=== PATIENT | male | born 1940 | race Caucasian/White ===

== ENCOUNTER 2024-01-10 14:46 | Outpatient (CLI) | payer OTHER ==
[~2024-01-10] VITALS: Ht 177.8 cm; Wt 77.1 kg
[2024-01-10] MEDS ORDERED: POTA10CA95 PO (16:15)
[2024-01-10] MEDS ORDERED: LYR25C PO (16:15)
[2024-01-10] MEDS ORDERED: FLO0.4C PO (16:15)
[2024-01-10] MEDS ORDERED: LISI40TA13 PO (16:15)
[2024-01-10] MEDS ORDERED: PRAV40TA3 PO (16:15)
[2024-01-10] MEDS ORDERED: TROS20TA4 PO (16:15)
[2024-01-10] MEDS ORDERED: METF-900 PO (16:15)
[2024-01-10] MEDS ORDERED: FAMO20TA79 PO (16:15)
[2024-01-10] MEDS ORDERED: CARV6.257 PO (16:15)
[2024-01-10] MEDS ORDERED: CHOL20004 PO (16:15)
[2024-01-10] MEDS ORDERED: HYDR25TA5 PO (16:15)
[2024-01-10] MEDS ORDERED: CYAN50005 PO (16:15)
[2024-01-10 16:30] LABS: BASOPHILS # (AUTO) 0.1 X10'3 (0-0.2); BASOPHILS % (AUTO) 1.2 % (0-1); EOSINOPHILS # (AUTO) 0.5 X10'3 (0-0.9); EOSINOPHILS % (AUTO) 6.1 % (0-6); LYMPHOCYTES # (AUTO) 2.3 X10'3 (1.1-4.8); LYMPHOCYTES % (AUTO) 30.8 % (21-51); MEAN CORPUSCULAR HEMOGLOBIN 28.9 PG (27.0-31.0); MEAN CORPUSCULAR HGB CONC 33.7 g/dL (33.0-36.5); MEAN CORPUSCULAR VOLUME 85.8 FL (78-98); MONOCYTES # (AUTO) 0.6 X10'3 (0-0.9); MONOCYTES % (AUTO) 8.6 % (2-12); NEUTROPHILS % (AUTO) 53.3 % (42-75); PRE OP HEMATOCRIT 38.8 % (42.0-52.0); PRE OP HEMOGLOBIN 13.1 g/dL (14.0-17.9); PRE OP PLATELET COUNT 175 X10'3 (140-440); PRE OP WHITE BLOOD COUNT 7.5 10'3 (4.8-10.8); RED BLOOD COUNT 4.52 X10'6 (4.70-6.10); RED CELL DISTRIBUTION WIDTH 15.6 % (11.5-14.5)
[2024-01-10 16:42] LABS: ALBUMIN 3.7 G/DL (3.4-5.0); ALBUMIN/GLOBULIN RATIO 1.2 (1.1-1.5); ALKALINE PHOSPHATASE 100 IU/L (46-116); BLOOD UREA NITROGEN 26 MG/DL (7-18); BUN/CREATININE RATIO 14.7 (10.0-20.0); CALCIUM 9.5 MG/DL (8.5-10.1); CHLORIDE 104 MMOL/L (99-107); CREATININE 1.77 MG/DL (0.60-1.10); PRE OP ALT 20 U/L (30-65); PRE OP ANION GAP 9 (8-16); PRE OP AST 15 U/L (10-37); PRE OP BILIRUB, TOTAL 1.5 MG/DL (0.0-1.0); PRE OP POTASSIUM 4.5 MMOL/L (3.4-5.1); PRE OP SODIUM 137 MMOL/L (135-145); TOTAL CARBON DIOXIDE 23.6 MMOL/L (24-32); TOTAL PROTEIN 6.8 G/DL (6.4-8.2); eGFR 37 ML/MIN
[2024-01-10 16:43] LABS: HEMOGLOBIN A1C 8.2 % (4.5-6.2)
[2024-01-10 17:09] LABS: PRE OP GLUCOSE 228 MG/DL (70-104)
[2024-01-14] MEDS ORDERED: ringers solution, lacted 1,000 ML IV SCH (05:30)
[2024-01-14] MEDS ORDERED: vancomycin 1,500 MG in NS 300ml IV soln IV ONE (05:30)
[2024-01-14] MEDS ORDERED: DOCUMENT DATE & TIME OF BETA-BLOCKER PO ONE (05:30)
[2024-01-14] MEDS ORDERED: tranexamic acid 650mg tablet PO ONE (05:30)
[2024-01-14] MEDS ORDERED: famotidine 20mg tablet PO ONE (05:30)
[2024-01-14] MEDS ORDERED: cefazolin 2gm/D5W 100mL 100 ML IV ONE (05:30)
== END 2024-01-10 23:59 | disposition home or self-care (01) ==
LOC: LAB 14:46 → EDSTATUS 01-14 07:45
PROVIDERS: ATTEND Orthopaedic Surgery
DX: Z01.818 Encounter for other preprocedural examination (principal); M17.11 Unilateral primary osteoarthritis, right knee; I10 Essential (primary) hypertension; E11.42 Type 2 diabetes mellitus with diabetic polyneuropathy; E78.00 Pure hypercholesterolemia, unspecified; K21.9 Gastro-esophageal reflux disease without esophagitis; G47.33 Obstructive sleep apnea (adult) (pediatric); Z79.1 Long term (current) use of non-steroidal anti-inflammatories (NSAID); Z79.82 Long term (current) use of aspirin; Z79.84 Long term (current) use of oral hypoglycemic drugs; Z79.891 Long term (current) use of opiate analgesic; Z79.899 Other long term (current) drug therapy; Z96.652 Presence of left artificial knee joint; Z98.890 Other specified postprocedural states; Z82.49 Family history of ischemic heart disease and other diseases of the circulatory system; Z83.3 Family history of diabetes mellitus
CPT/HCPCS: 36415; 80053; 83036; 85025; 87081; J0690; J3370; J7120